=== PATIENT | female | born 1965 | race Caucasian/White ===

== ENCOUNTER → 2018-07-12 | Outpatient (CLI) | payer OTHER ==
[~2018-07-12] MED LIST: IOVERSOL 320 MG/ML 100 ML VIAL ONE; SODIUM CHLORIDE 0.9% 100 ML ONE
== END | disposition home or self-care (01) ==
LOC: RADMN 09:42
PROVIDERS: ATTEND Family Medicine
DX: R91.1 Solitary pulmonary nodule (principal); N20.0 Calculus of kidney; K76.9 Liver disease, unspecified; M43.8X4 Other specified deforming dorsopathies, thoracic region
CPT/HCPCS: 71260; J7050; Q9967

== ENCOUNTER → 2018-07-12 | Outpatient (CLI) | payer OTHER | END | disposition home or self-care (01) | LOC: RADMN 09:01 | PROVIDERS: ATTEND Specialist | DX: H81.13 Benign paroxysmal vertigo, bilateral (principal); I67.9 Cerebrovascular disease, unspecified | CPT/HCPCS: 70544; 70547 ==